=== PATIENT | male | born 1990 | race Caucasian/White ===

== ENCOUNTER → 2022-10-13 | Outpatient (CLI) | payer OTHER | LOC: M PLALAB 10:21 | PROVIDERS: ATTEND Internal Medicine Hematology | DX: Z00.00 Encounter for general adult medical examination without abnormal findings (principal) ==

== ENCOUNTER → 2022-12-10 | Outpatient (CLI) | payer OTHER ==
[2022-12-10 14:18] LABS: ALBUMIN 4.1 G/DL (3.2-5.2); ALKALINE PHOSPHATASE 68 U/L (46-116); ALT/SGPT 28 U/L (7.0-40); AST/SGOT 15 U/L (<34); BILIRUBIN,DIRECT < 0.1 MG/DL (<0.4); BILIRUBIN,TOTAL 0.3 MG/DL (0.3-1.2); TOTAL PROTEIN 7.1 G/DL (5.7-8.2)
== END ==
LOC: M PLALAB 10:29
PROVIDERS: ATTEND Internal Medicine Hematology
DX: L21.9 Seborrheic dermatitis, unspecified (principal)

== ENCOUNTER → 2023-08-25 | Outpatient (CLI) | payer OTHER | LOC: M PLAIMG 15:11 | PROVIDERS: ATTEND Internal Medicine Hematology | DX: S42.009D Fracture of unspecified part of unspecified clavicle, subsequent encounter for fracture with routine healing (principal) ==

== ENCOUNTER 2023-09-01 09:23 | Observation (INO) | payer OTHER ==
[~2023-09-01] VITALS: Ht 167.6 cm; Wt 79.5 kg
[2023-09-01] VITALS (7 sets, daily range): BP systolic 117–123; BP diastolic 53–67; TEMP 97.5–98.1; O2SAT 95–97
[2023-09-01] MEDS ORDERED: MIDAZOLAM INJ 2MG/2ML VIAL As Ordered ONE (10:54)
[2023-09-01] MEDS ORDERED: ONDANSETRON 4MG 2ML VIAL As Ordered ONE (10:54)
[2023-09-01] MEDS ORDERED: LIDOCAINE 2% 100MG/5ML SDV (FOR ANES.) As Ordered ONE (10:54)
[2023-09-01] MEDS ORDERED: ROCURONIUM BROMIDE 50MG/5ML VIAL As Ordered ONE (10:54)
[2023-09-01] MEDS ORDERED: propofoL 200 MG/20 ML VIAL As Ordered ONE (10:54)
[2023-09-01] MEDS ORDERED: fentaNYL 100 MCG/2 ML INJECTION As Ordered ONE (10:54)
[2023-09-01] MEDS: BACITRACIN OINTMENT 30GM TUBE As Ordered ONE (10:56)
[2023-09-01] MEDS ORDERED: KETOROLAC 60MG 2ML VIAL As Ordered ONE (10:56)
[2023-09-01] MEDS ORDERED: HYDROmorphone HCL 2MG/ML 1ML VIAL As Ordered ONE (11:29)
[2023-09-01] MEDS: ceFAZolin 1GM VIAL As Ordered ONE (11:30)
[2023-09-01] MEDS ORDERED: ACETAMINOPHEN 1000MG 100ML IV BAG As Ordered ONE (11:34)
[2023-09-01] MEDS ORDERED: SUGAMMADEX SODIUM 500 MG/5 ML VIAL (BRIDION) As Ordered ONE (12:46)
[2023-09-01] MEDS ORDERED: oxyCODONE 5MG TAB PO PRN ×2 (13:15)
[2023-09-01] MEDS ORDERED: ACETAMINOPHEN TAB 650MG DOSE (2X325MG) PO PRN (13:15)
[2023-09-01] MEDS ORDERED: fentaNYL 100 MCG/2 ML INJECTION IV PRN (13:25)
[2023-09-01] MEDS: LR 1,000 ML IV SCH (13:25)
[2023-09-01] MEDS: ONDANSETRON 4MG 2ML VIAL IV PRN (13:35)
[2023-09-01] MEDS: HYDROMORPHONE HCL 0.5 MG/ 0.5 ML SYRINGE IV PRN (13:35)
[2023-09-01] MEDS: oxyCODONE 5MG TAB PO PRN (13:41)
[2023-09-01] MEDS ORDERED: ceFAZolin SOD 2 GM in D5W MINI-BAG PLUS 50 ML IV SCH (20:00)
[2023-09-01] MEDS: ceFAZolin SOD 2 GM in IV 1 EA IV SCH (20:08)
[2023-09-01] MEDS: SENOKOT S TAB PO SCH (20:09)
[2023-09-01] MEDS: DOCUSATE SODIUM 100MG CAPSULE PO SCH (20:09)
[2023-09-02 00:09] VITALS: BP 115/60; TEMP 97.9; O2SAT 97
[2023-09-02 08:00] VITALS: BP 119/69; TEMP 98.1; O2SAT 97
[2023-09-02] MEDS: ENOXAPARIN 40MG/0.4ML SYRINGE (J1650 PER 10MG) SC SCH (09:00)
[2023-09-02] MEDS ORDERED: ACETAMINOPHEN TAB 650MG DOSE (2X325MG) As Ordered ONE (10:15)
[2023-09-02 16:45] LABS: BASO % 0.1 % (0.0-1.0); EOS # 0.1 10^3/uL (0.0-0.5); EOS % 0.8 % (0.0-3.0); HEMATOCRIT 36.8 % (42.0-52.0); HEMOGLOBIN 13.2 g/dl (13.5-17.5); LYMPH # 1.6 10^3/uL (1.5-5.0); LYMPH % 18.4 % (24.0-44.0); MEAN CORPUSCULAR HEMOGLOBIN 33.2 pg (27.0-33.0); MEAN CORPUSCULAR HGB CONC 35.9 g/dl (32.0-36.5); MEAN CORPUSCULAR VOLUME 92.5 fl (80.0-96.0); MONO # 0.8 10^3/uL (0.0-0.8); MONO % 9.6 % (2.0-8.0); NEUTROPHILS % 70.9 % (36.0-66.0); PLATELET COUNT, AUTOMATED 158 10^3/uL (150-450); RED BLOOD COUNT 3.98 10^6/uL (4.30-6.10); WHITE BLOOD COUNT 8.5 10^3/uL (4.0-10.0)
[2023-09-02 18:37] LABS: ALBUMIN 3.6 G/DL (3.2-5.2); ALKALINE PHOSPHATASE 70 U/L (46-116); ALT/SGPT 19 U/L (7.0-40); AST/SGOT 13 U/L (<34); BILIRUBIN,TOTAL 0.6 MG/DL (0.3-1.2); BLOOD UREA NITROGEN 14 MG/DL (9-23); CALCIUM LEVEL 9.3 MG/DL (8.5-10.1); CARBON DIOXIDE LEVEL 29 MMOL/L (20-31); CHLORIDE LEVEL 108 MMOL/L (98-107); CREATININE FOR GFR 0.98 MG/DL (0.70-1.30); GLOMERULAR FILTRATION RATE > 60.0 (>60); GLUCOSE, FASTING 84 MG/DL (60-100); MAGNESIUM LEVEL 1.9 MG/DL (1.8-2.4); PHOSPHORUS LEVEL 3.9 MG/DL (2.5-4.9); POTASSIUM SERUM 4.1 MMOL/L (3.5-5.1); SODIUM LEVEL 140 MMOL/L (136-145); TOTAL PROTEIN 6.2 G/DL (5.7-8.2)
== END 2023-09-02 12:55 | disposition home or self-care (01) ==
LOC: M SDC 09:23 → M ED INP 09:24 → M MS5PR 14:20
PROVIDERS: ADMIT Orthopaedic Surgery; ATTEND Orthopaedic Surgery
DX: S42.021A Displaced fracture of shaft of right clavicle, initial encounter for closed fracture (principal); X58.XXXA Exposure to other specified factors, initial encounter; Y92.89 Other specified places as the place of occurrence of the external cause; Y93.9 Activity, unspecified; Y99.9 Unspecified external cause status
CPT/HCPCS: 23515; 76000; 80053; 83735; 84100; 85025; 96365; C1713; J0131; J0665; J0690; J1100; J1170; J1885; J2250; J2405; J3010

== ENCOUNTER → 2023-09-14 | Outpatient (CLI) | payer OTHER | LOC: M SOG 07:53 | PROVIDERS: ATTEND Physician Assistant | DX: S42.021D Displaced fracture of shaft of right clavicle, subsequent encounter for fracture with routine healing (principal) ==

== ENCOUNTER → 2023-10-13 | Outpatient (CLI) | payer OTHER | LOC: M SOG 07:55 | PROVIDERS: ATTEND Physician Assistant | DX: S42.021D Displaced fracture of shaft of right clavicle, subsequent encounter for fracture with routine healing (principal) ==

== ENCOUNTER → 2023-11-25 | Outpatient (CLI) | payer OTHER | LOC: M SOG 07:57 | PROVIDERS: ATTEND Physician Assistant | DX: S42.021D Displaced fracture of shaft of right clavicle, subsequent encounter for fracture with routine healing (principal) ==